=== PATIENT | female | born 1990 | race Hispanic/Latino ===

== ENCOUNTER 2016-09-12 11:49 | Inpatient (IN) | payer OTHER ==
[2016-09-12] VITALS (20 sets, daily range): BP systolic 99–134; BP diastolic 54–84
[~2016-09-12] VITALS: Ht 154.9 cm; Wt 90.0 kg
[2016-09-12] MEDS ORDERED: PRENTAB9 PO (12:16)
[2016-09-12] MEDS ORDERED: LR 1,000 ML IV SCH ×2 (13:53)
[2016-09-12] MEDS ORDERED: OXYTOCIN DRIP 30 UNITS in APPROPRIATE DILUENT 1 EA IV SCH (14:00)
[2016-09-12 14:27] LABS: MEAN CORPUSCULAR HEMOGLOBIN 29.8 pg (27.0-33.0); MEAN CORPUSCULAR HGB CONC 34.7 g/dl (32.0-36.5); MEAN CORPUSCULAR VOLUME 85.9 fl (80.0-96.0); WHITE BLOOD COUNT 8.4 K/mm3 (4.0-10.0)
[2016-09-13] VITALS (55 sets, daily range): BP systolic 88–151; BP diastolic 50–82
[2016-09-13] MEDS ORDERED: FENTANYL 2MCG/ML ROPIVACAINE 0.2% IN 0.9% NACL 200ML IVBAG As Ordered ONE (14:15)
[2016-09-13] MEDS ORDERED: LACTATED RINGER'S 1000 ML IV PRN (16:00)
[2016-09-13] MEDS ORDERED: NALOXONE INJ 0.4 MG/1 ML VIAL (J2310) IV PRN (16:00)
[2016-09-13] MEDS ORDERED: EPIDURAL/PCA KEYS XX PRN (16:00)
[2016-09-13] MEDS ORDERED: diphenhydrAMINE INJ 50MG/ML VIAL (J1200) IV PRN (16:00)
[2016-09-13] MEDS ORDERED: ONDANSETRON 4MG/2ML VIAL (J2405) IV PRN (16:00)
[2016-09-13] MEDS ORDERED: EPIDURAL COMMENT XX SCH (16:00)
[2016-09-13] MEDS ORDERED: FENTANYL/ROPIVACAINE/NACL BAG 200 ML EPIDURAL SCH (16:00)
[2016-09-13] MEDS ORDERED: ePHEDrine SULFATE 25 MG/5 ML(5MG/ML) SYRINGE IV PRN (16:00)
[2016-09-13] MEDS ORDERED: REFRIGERATOR IV KEYS XX PRN (16:00)
[2016-09-14] VITALS (21 sets, daily range): BP systolic 103–169; BP diastolic 53–88
[2016-09-14] MEDS ORDERED: BICITRA 30ML SOLN UDC PO ONE (05:30)
[2016-09-14] MEDS ORDERED: ACETAMINOPHEN 650 MG SUPP PR SCH (05:30)
[2016-09-14] MEDS ORDERED: BUPIVACAINE HCL 0.25% 10 ML VIAL SC ONE (05:30)
[2016-09-14] MEDS ORDERED: LIDOCAINE 2% W/EPIN INJ 20ML **PRES FREE As Ordered ONE (05:35)
[2016-09-14] MEDS ORDERED: OXYTOCIN INJ 10 UNITS/ML VIAL (J2590) As Ordered ONE ×3 (05:36→08:05)
[2016-09-14] MEDS ORDERED: MORPHINE PRES-FREE INJ 10 MG/10 ML VIAL (J2274) As Ordered ONE (05:40)
[2016-09-14] MEDS: IBUPROFEN 800 MG TAB PO SCH ×3 (06:00→22:48)
[2016-09-14] MEDS ORDERED: fentaNYL 100 MCG/2 ML INJECTION (J3010) As Ordered ONE (06:19)
[2016-09-14] MEDS ORDERED: MIDAZOLAM INJ 2 MG/2 ML VIAL (J2250) As Ordered ONE (06:19)
[2016-09-14] MEDS ORDERED: ONDANSETRON 4MG/2ML VIAL (J2405) As Ordered ONE (06:40)
[2016-09-14] MEDS ORDERED: PROPOFOL 200 MG/20 ML VIAL As Ordered ONE (06:40)
[2016-09-14] MEDS ORDERED: METOCLOPRAMIDE INJ 10MG/2ML VIAL (J2765) As Ordered ONE (06:40)
[2016-09-14] MEDS ORDERED: SUCCINYLCHOLINE 100 MG/5 ML SYRINGE (J0330) As Ordered ONE (06:40)
[2016-09-14] MEDS ORDERED: LIDOCAINE 2% INJ 100 MG/5 ML SDV (FOR ANES.) As Ordered ONE (06:40)
[2016-09-14 07:09] LABS: CORD GAS ABE A -5.6; CORD GAS ABE V -4.6; CORD GAS HCO3 A 21.8 MEQ/L; CORD GAS HCO3 V 22.2 MEQ/L; CORD GAS O2 SAT A 23.5 %; CORD GAS O2 SAT V 23.3 %; CORD GAS PCO2 A 49.6 mmHg; CORD GAS PCO2 V 47.6 mmHg; CORD GAS PH A 7.26 UNITS; CORD GAS PH V 7.287 UNITS; CORD GAS PO2 A 15.2 mmHg; CORD GAS SBC A 18.2 MEQ/L; CORD GAS TCO2 A 23.3 MEQ/L; CORD GAS TCO2 V 23.7 MEQ/L
[2016-09-14] MEDS ORDERED: PERCOCET 5MG/325MG TAB PO PRN ×2 (07:30→09:45)
[2016-09-14] MEDS ORDERED: MOM 30ML SUSPENSION UDC PO PRN (07:30)
[2016-09-14] MEDS ORDERED: DOCUSATE SODIUM 100 MG CAP PO PRN (07:30)
[2016-09-14] MEDS ORDERED: MEASLES,MUMPS,RUBELLA VACCINE INJ (MMR-II) (90707) SC SCH (07:30)
[2016-09-14] MEDS ORDERED: ANUSOL HC CREAM 30GM TOP PRN (07:30)
[2016-09-14] MEDS ORDERED: RHOGAM 300 MCG (1500 IU) INJ (J2790) IM SCH (07:30)
[2016-09-14] MEDS: PRENATAL VITAMIN TAB PO SCH (09:00)
[2016-09-14] MEDS ORDERED: NALBUPHINE HCL 10 MG/ML AMP (J2300) IV PRN (09:45)
[2016-09-14] MEDS ORDERED: fentaNYL 100 MCG/2 ML INJECTION (J3010) IV PRN (09:45)
[2016-09-14] MEDS ORDERED: HYDROmorphone HCL 1 MG/ML SYRINGE (J1170) IV PRN (09:45)
[2016-09-14] MEDS ORDERED: LR 1,000 ML IV SCH (09:45)
[2016-09-14] MEDS ORDERED: ONDANSETRON 4MG/2ML VIAL (J2405) IV PRN (09:45)
[2016-09-14] MEDS: LR 1,000 ML IV SCH ×2 (14:42→22:30)
[2016-09-15 02:22] VITALS: BP 113/67
[2016-09-15] MEDS: IBUPROFEN 800 MG TAB PO SCH ×3 (05:36→21:34)
[2016-09-15 05:41] VITALS: BP 141/93
[2016-09-15] MEDS: LR 1,000 ML IV SCH (06:30)
--- NOTE | 2016-09-15 07:35 | IPN ---
DATE: 09/15/2016 This lady is 3 now para 1 who had a primary section for cephalopelvic disproportion asynclitism and failure progress On her first day, we discussed phlebitis, cystitis, mastitis, endometritis and cellulitis, diet, exercise, pain management, perineal breast and wound care. Presently her blood pressure is 141/93, respirations are 18, pulse 118 and temperature is 97.2. Her admitting hemoglobin was 11.7, hematocrit 33.7, platelets are 282. day #1 hemoglobin is pending. The arterial pH on the baby was 7.26, base excess -5.6, venous pH was 7.28, base excess -4.6. The rest the examination unremarkable. Chest is clear bilaterally to bases. Thyroid is midline. No JVD, bruits. She is not complaining of a sore throat any longer and there is no hemoptysis secondary to grazing the tonsil at the time of intubation. Abdomen is soft. Four quadrant bowel sounds are noticed. Uterus two below and incision is clean and dry. There is no evidence of DVT, PE or superficial phlebitis. She is not bleeding. She is neuro complete. No evidence of incontinence, urgency or frequency. No nausea, vomiting, diarrhea or constipation. She is mobilizing taking a shower today and plan discharge for tomorrow morning. The patient and baby are doing well.
[2016-09-15 07:43] LABS: MEAN CORPUSCULAR HEMOGLOBIN 29.3 pg (27.0-33.0); MEAN CORPUSCULAR HGB CONC 34.2 g/dl (32.0-36.5); MEAN CORPUSCULAR VOLUME 85.5 fl (80.0-96.0); RED CELL DISTRIBUTION WIDTH 14.3 % (11.5-14.5); WHITE BLOOD COUNT 10.2 K/mm3 (4.0-10.0)
[2016-09-15] MEDS: PRENATAL VITAMIN TAB PO SCH (08:07)
[2016-09-15 10:00] VITALS: BP 132/70
[2016-09-15] MEDS: PERCOCET 5MG/325MG TAB PO PRN ×2 (10:42→19:55)
[2016-09-15 14:00] VITALS: BP 143/87
[2016-09-15 18:14] VITALS: BP 128/81
[2016-09-15 21:55] VITALS: BP 150/86
[2016-09-16] MEDS: IBUPROFEN 800 MG TAB PO SCH (05:43)
[2016-09-16 05:54] VITALS: BP 135/83
[2016-09-16] MEDS ORDERED: IBUP-1114 PO (08:26)
[2016-09-16] MEDS ORDERED: ANUS2.5C2 TOP ×2 (08:26→08:31)
[2016-09-16] MEDS ORDERED: MOM30SS PO (08:26)
[2016-09-16] MEDS ORDERED: COLA100C3 PO (08:28)
[2016-09-16] MEDS ORDERED: OXYC1TAB23 PO (08:30)
[2016-09-16] MEDS: PRENATAL VITAMIN TAB PO SCH (08:50)
--- NOTE | 2016-09-16 12:16 | DSES ---
DATE OF ADMISSION: 09/12/2016 DATE OF DISCHARGE: 09/16/2016 This lady is a 26-year-old 1, now para 1 who was admitted for induction of labor at 41 weeks of gestation. She had a primary section for cephalopelvic disproportion, asynclitism, of a live male infant 8 pounds 3 ounces, 3704 grams. score of 8 and 9 at one and five minutes respectively. Arterial blood gas 7.26, base excess -5.6, venous pH 7.28, base excess -4.6. Admitting hemoglobin was 11.7, hematocrit 33.7, platelets are 282. Discharge hemoglobin was 9.8, hematocrit 28.6 and platelets are 243. Her discharge vital signs: Her blood pressure is 135/83, respirations 20, pulse 94, temperature 97.7. On examination today, she is well, breast-feeding, mobilizing, passing gas and has had a bowel movement. She is normocephalic, atraumatic. Neck: Full range of motion. Pupils equal and reactive to light. Distal pulses are symmetric. No evidence of deep vein thrombosis (DVT), pulmonary embolism (PE) or superficial phlebitis. Her lungs are clear bilaterally to bases. No wheezes or rhonchi. No costovertebral angle tenderness. Uterus 2 below. Lochia is moderate. Four quadrant bowel sounds are noted. Incision is clean and dry. She has no rashes, lesions or pruritus. No arthralgia or myalgia. No complaints of cough, wheezes, shortness of breath or dyspnea on exertion. No chest pain. Not bleeding. Neurologic complete. No incontinence, urgency or frequency. No nausea, vomiting, diarrhea or constipation. No diabetic issues. No MACHINE WASHER issues. Past surgical and medical history unremarkable. Family history is noncontributory. She does not smoke, drink abuse drugs. There is no domestic violence. She is to a soldier. She was given her medications to take home with her. She was given an appointment for the baby in 2 weeks. She has appointment with us for a 2-week incision check. She declined any method of control. The patient will be seen in two weeks' time. Discharged confined. Copy To: [facility]
--- NOTE | 2016-09-19 08:08 | RO ---
DATE OF PROCEDURE: 09/14/2016 PREOPERATIVE DIAGNOSES: Asynclitism, failure to progress. POSTOPERATIVE DIAGNOSES: Asynclitism, failure to progress. OPERATION PROPOSED: Primary section. OPERATION PERFORMED: Primary section. SURGEON: Dr. Trey Ramirez SECURITY FLEX UTILITY OFFICER: ANESTHESIA: Spinal plus local anesthetic for intraperitoneal procedures. ESTIMATED BLOOD LOSS: 500 mL. DESCRIPTION OF PROCEDURE: Under adequate anesthesia, prepped and draped in the supine position, Li catheter in the bladder draining clear urine, acetaminophen suppository 1300 mg per rectum, sequentials on board, and antibiotics preoperatively, a Pfannenstiel incision was made two fingerbreadths above the symphysis pubis, passing through abdominal layers, securing hemostasis. Opening the peritoneal cavity, the bladder was reflected well down anteriorly. Low transverse incision was made into the uterus. We were able to establish the baby in asynclitism, almost in occiput posterior (OP) to transverse position. Delivered a live male infant weighing 3704 grams, 8 pounds 3 ounces with scores of 8 and 9 at one and five minutes, respectively. The uterine cavity was swept clean after placenta was removed. Arterial pH 7.26, base excess -5.6, venous pH 7.28, base excess -4.6. The uterus contracted well down on Pitocin. The lower segment was oversewn in the usual fashion in two layers, and reperitonealization was performed. With instrument and pad count correct, both tubes and ovaries appeared to be normal. The abdomen was then closed, running stitch for the peritoneum, same for the fascia, interrupted for subcu, Dexon to the skin. Marcaine 0.25% 10 mL spray and Telfa were placed, and the patient was sent to recovery in good condition. Edited: [facility] 09/20/2016 [id number]
== END 2016-09-16 10:15 | disposition home or self-care (01) | DRG 766 ==
LOC: M LDI 11:49 → M OBS 09-14 08:18
PROVIDERS: ADMIT Obstetrics & Gynecology; ATTEND Obstetrics & Gynecology
PROC: 3E033VJ Introduction of Other Hormone into Peripheral Vein, Percutaneous Approach (ICD-10-PCS; 2016-09-12)
PROC: 10D00Z1 Extraction of Products of Conception, Low, Open Approach (ICD-10-PCS; principal; 2016-09-15)
DX: O48.0 Post-term pregnancy (principal); Z37.0 Single live birth; Z3A.41 41 weeks gestation of pregnancy; O62.0 Primary inadequate contractions; O65.4 Obstructed labor due to fetopelvic disproportion, unspecified